=== PATIENT | female | born 1985 | race Caucasian/White ===

== ENCOUNTER 2017-10-05 17:37 | Emergency (ER) | payer BC ==
[~2017-10-05] VITALS: Ht 157.5 cm; Wt 73.3 kg
[~2017-10-05 17:37] MED LIST: FISHOIL PO
[2017-10-05 17:56] VITALS: Ht 157.5 cm; Wt 73.3 kg
[2017-10-05] MEDS ORDERED: RANITIDINE HCL 150 MG TAB PO STA (18:06)
[2017-10-05] MEDS ORDERED: SODIUM CHLORIDE 0.9% 1000ML 2,000 ML IV STA (18:06)
[2017-10-05] MEDS ORDERED: ONDANSETRON INJ 2 MG/ML 2 ML VIAL IV STA (18:06)
--- NOTE | 2017-10-05 18:21 | EMERGENCY ROOM VISIT NOTE ---
History Report prepared by Josue: Bry Srivastava Under the Supervision of: Dr. Kaveh Hook M.D. First contact with patient: 18:00 Chief Complaint: VOMITING Stated Complaint: VOMITING, 6 MONTHS Nursing Triage Summary: Patient ambulatory to triage with an upright and steady gait, states "I was exposed to chlorine gas on Monday. I don't know if this is from that. I have been vomiting a lot today. I was at work when it all started. I had to leave early." Patient denies any diarrhea. Patient admits to "stomach burning." History of Present Illness The patient is a 31 year old female who presents to the Emergency Room with complaints of persistent vomiting beginning three hours ago. The patient states that she is currently six months and has had no complications so far during her . She notes that this is her third , and reports that her first two pregnancies also did not have any complications. The patient states that her vomit was originally bile, but notes that it has since turned a red color. She denies having any symptoms this morning, but reports that she is also currently experiencing stomach burning and chills. She reports that she was exposed to chlorine gas two days ago and is not sure whether her current symptoms are related to her exposure. She denies any diarrhea, vaginal discharge /bleeding, urinary symptoms, fever, and known sick contacts. Source of History: patient Onset: three hours ago Position: abdomen Quality: other (vomiting) Timing: other (persistent) Associated Symptoms: + chills, No fevers, No diarrhea, No urinary symptoms Note: The patient also complains of stomach burning. She also denies any vaginal bleeding/discharge. Review of Systems See HPI for pertinent positives & negatives. A total of 10 systems reviewed and were otherwise negative. Past Medical & Surgical Medical Problems: (1) Family History No pertinent family history stated. Social History Smoking Status: Never Smoker Marital Status: Housing Status: lives with family Occupation Status: employed Current/Historical Medications Scheduled Multivit/Min/Iron/Fol Ac/Pren ( Vitamin), 1 TAB PO DAILY Ondasetron Odt (Zofran Odt), 4 MG SL Q6H Ranitidine Hcl (Zantac), 1 TAB PO BID Allergies Coded Allergies: No Known Allergies (Unverified , 10/05/17) Physical Exam Vital Signs Date Time Temp Pulse Resp B/P (MAP) Pulse Ox O2 Delivery O2 Flow Rate FiO2 10/05/17 20:53 36.5 78 18 103/56 100 10/05/17 20:31 78 18 103/56 100 Room Air 10/05/17 19:27 71 16 100/51 100 Room Air 10/05/17 17:56 36.5 84 20 100/62 100 Room Air Physical Exam GENERAL: Patient is in no acute distress. HEENT: No acute trauma, normocephalic atraumatic, mucous membranes moist, no nasal congestion, no scleral icterus. NECK: No stridor, no adenopathy, no meningismus, trachea is midline, scattered petechial hemorrhages to the anterior neck. LUNGS: Clear to auscultation bilaterally, no wheeze, no rhonchi, breath sounds equal. HEART: Without murmurs gallops or rubs, regular rate and rhythm. ABDOMEN: Soft, nontender, bowel sounds positive, no hernias, no peritonitis, gravid uterus to above the umbilicus. EXTREMITIES: No cyanosis or edema, full range of motion of all the joints without pain or difficulty, no signs for acute trauma. NEUROLOGIC: Oriented x 3, no acute motor or sensory deficits, no focal weakness. SKIN: No jaundice, no diaphoresis. Medical Decision & Procedures ER Provider Diagnostic Interpretation: Radiology results as stated below per my review and radiologist interpretation: CHEST ONE VIEW PORTABLE FINDINGS: Cardiomediastinal silhouette normal. No focal opacity. No large effusion or pneumothorax. Osseous structures normal. Upper abdomen normal. IMPRESSION: 1. No acute cardiopulmonary disease. Electronically signed by: Kyrie Gonzalez M.D. 10/05/2017 7:31 PM Laboratory Results 10/05/17 18:15 Red Blood Count 5.22, Mean Corpuscular Volume 84.7, Mean Corpuscular Hemoglobin 30.3, Mean Corpuscular Hemoglobin Concent 35.7, Mean Platelet Volume 10.2, Neutrophils (%) (Auto) 90.4, Lymphocytes (%) (Auto) 3.2, Monocytes (%) (Auto) 6.0, Eosinophils (%) (Auto) 0.1, Basophils (%) (Auto) 0.1, Neutrophils # (Auto) 13.75, Lymphocytes # (Auto) 0.49, Monocytes # (Auto) 0.92, Eosinophils # (Auto) 0.01, Basophils # (Auto) 0.01 10/05/17 18:15 Test 10/05/17 18:15 10/05/17 19:00 White Blood Count 15.21 K/uL (4.8-10.8) Red Blood Count 5.22 M/uL (4.2-5.4) Hemoglobin 15.8 g/dL (12.0-16.0) Hematocrit 44.2 % (37-47) Mean Corpuscular Volume 84.7 fL (80-100) Mean Corpuscular Hemoglobin 30.3 pg (25-34) Mean Corpuscular Hemoglobin Concent 35.7 g/dl (32-36) Platelet Count 254 K/uL (130-400) Mean Platelet Volume 10.2 fL (7.4-10.4) Neutrophils (%) (Auto) 90.4 % Lymphocytes (%) (Auto) 3.2 % Monocytes (%) (Auto) 6.0 % Eosinophils (%) (Auto) 0.1 % Basophils (%) (Auto) 0.1 % Neutrophils # (Auto) 13.75 K/uL (1.4-6.5) Lymphocytes # (Auto) 0.49 K/uL (1.2-3.4) Monocytes # (Auto) 0.92 K/uL (0.11-0.59) Eosinophils # (Auto) 0.01 K/uL (0-0.5) Basophils # (Auto) 0.01 K/uL (0-0.2) RDW Standard Deviation 39.8 fL (36.4-46.3) RDW Coefficient of Variation 12.9 % (11.5-14.5) Immature Granulocyte % (Auto) 0.2 % Immature Granulocyte # (Auto) 0.03 K/uL (0.00-0.02) Hyposegmented Neutrophils 1+ Anion Gap 7.0 mmol/L (3-11) Est Creatinine Clear Calc Drug Dose 91.5 ml/min Estimated GFR () 109.0 Estimated GFR (Non- 94.0 BUN/Creatinine Ratio 13.4 (10-20) Calcium Level 8.7 mg/dl (8.5-10.1) Total Bilirubin 0.4 mg/dl (0.2-1) Aspartate Amino Transf (AST/SGOT) 19 U/L (15-37) Alanine Aminotransferase (ALT/SGPT) 23 U/L (12-78) Alkaline Phosphatase 94 U/L (45-117) Total Protein 8.4 gm/dl (6.4-8.2) Albumin 3.5 gm/dl (3.4-5.0) Globulin 4.9 gm/dl (2.5-4.0) Albumin/Globulin Ratio 0.7 (0.9-2) Lipase 145 U/L (73-393) Urine Color YELLOW Urine Appearance CLOUDY (CLEAR) Urine pH 5.5 (4.5-7.5) Urine Specific [place] 1.015 (1.000-1.030) Urine Protein NEG (NEG) Urine Glucose (UA) NEG (NEG) Urine Ketones TRACE (NEG) Urine Occult Blood NEG (NEG) Urine Nitrite NEG (NEG) Urine Bilirubin NEG (NEG) Urine Urobilinogen NEG (NEG) Urine Leukocyte Esterase NEG (NEG) Urine WBC (Auto) 1-5 /hpf (0-5) Urine RBC (Auto) 0-4 /hpf (0-4) Urine Hyaline Casts (Auto) 5-10 /lpf (0-5) Urine Epithelial Cells (Auto) >30 /lpf (0-5) Urine Bacteria (Auto) 1+ (NEG) Laboratory results reviewed by me. Medications Administered Medications (Trade) Dose Ordered Sig/Ruben Route Start Time Stop Time Status Last Admin Dose Admin Sodium Chloride 2,000 ml @ 999 mls/hr Q2H1M STAT IV 10/05/17 18:06 10/05/17 20:06 DC 10/05/17 18:20 999 MLS/HR Ondansetron HCl (Zofran Inj) 4 mg NOW STAT IV 10/05/17 18:06 10/05/17 18:11 DC 10/05/17 18:20 4 MG Ranitidine HCl (zANTac TAB) 150 mg NOW STAT PO 10/05/17 18:06 10/05/17 18:11 DC 10/05/17 18:20 150 MG Ondansetron HCl (ZOFRAN ODT 4MG Home Pack) 1 homepack UD ONCE PO 10/05/17 20:45 10/05/17 20:46 DC 10/05/17 20:52 1 HOMEPACK ED Course 1804: The patient was evaluated in room B6. A complete history and physical exam was performed. 1805: Ranitidine HCl 150mg, Zofran Inj 4mg IV, Sodium Chloride 2000 ml @ 999 mls /hr IV 1811: I spoke to poison control who states that chlorine gas is just a throat and lung irritant and that the patients exposure should not cause any issues. 2025: I reevaluated and updated the patient. 2036: heart tones are 142. 2044: Ondansetron HCl 1 homepack PO 2051: Reevaluated the patient. Discussed results and discharge instructions: she verbalized understanding and agreement. The patient is ready for discharge. Medical Decision Differential diagnoses include: viral illness, foodborne illness, vomiting secondary to , dehydration, electrolyte abnormalities, GI bleed, and poisoning. There is a moderate leukocytosis at 15,000, this is consistent with her vomiting and . No concerning anemia. No significant electrolyte abnormality, kidney failure, hepatitis or pancreatitis. Chest film does not show free air or mediastinal widening, there is no pneumonia. heart tones were strong at over 140. On exam, the patient was not febrile or toxic. There was no peritonitis. Urinalysis result does not show evidence for infection. Patient received oral Zantac, IV Zofran and IV saline, she feels improved, no further vomiting. Patient is being discharged on Zantac for stomach burning/upset. Zofran for nausea, a bland and simple diet. This illness is likely viral or foodborne. She was reassured. Of note, I did contact the poison center about the chlorine gas inhalation, this would not be causing her issues today. Medication Reconcilliation Current Medication List: was personally reviewed by me Blood Pressure Screening Patient's blood pressure: Normal blood pressure Blood pressure disposition: Did not require urgent referral Impression Primary Impression: Nausea Additional Impressions: Vomiting Dehydration Scribe Attestation The scribe's documentation has been prepared under my direction and personally reviewed by me in its entirety. I confirm that the note above accurately reflects all work, treatment, procedures, and medical decision making performed by me. Departure Information Dispostion Home / Self-Care Prescriptions Ondasetron Odt (ZOFRAN ODT) 4 Mg Tab 4 MG SL Q6H for Nausea, #10 TAB Prov: Kaveh Hook M.D. 10/05/17 Ranitidine Hcl (ZANTAC) 150 Mg Tab 1 TAB PO BID for 14 Days, #28 TAB 3 Refills Prov: Kaveh Hook M.D. 10/05/17 Referrals Faye Braden DO (PCP) Forms HOME CARE DOCUMENTATION FORM, IMPORTANT VISIT INFORMATION Patient Instructions My [facility] Additional Instructions fluids rest tylenol for fever and pain zantac 2x per day for the stomach burning zofran 1 tab every 6 hours for nausea bland diet---crackers, soup, gatorade, toast, rice return if worsening Problem Qualifiers
[2017-10-05 18:28] LABS: HEMATOCRIT 44.2 % (37-47); HEMOGLOBIN 15.8 g/dL (12.0-16.0); MEAN CELL VOLUME 84.7 fL (80-100); MEAN CORPUSCULAR HEMOGLOBIN 30.3 pg (25-34); MEAN CORPUSCULAR HGB CONC 35.7 g/dl (32-36); MEAN PLATELET VOLUME 10.2 fL (7.4-10.4); PLATELET COUNT 254 K/uL (130-400); RED CELL DISTRIBUTION WIDTH CV 12.9 % (11.5-14.5); RED CELL DISTRIBUTION WIDTH SD 39.8 fL (36.4-46.3); WHITE BLOOD COUNT 15.21 K/uL (4.8-10.8)
[2017-10-05 18:47] LABS: ALBUMIN 3.5 gm/dl (3.4-5.0); CALCIUM 8.7 mg/dl (8.5-10.1); CREATININE 0.82 mg/dl (0.60-1.20); POTASSIUM 3.4 mmol/L (3.5-5.1)
[2017-10-05 18:49] LABS: TOTAL PROTEIN 8.4 gm/dl (6.4-8.2)
[2017-10-05 18:57] LABS: BASO % 0.1 %; BASO ABS # 0.01 K/uL (0-0.2); EOS % 0.1 %; EOS ABS # 0.01 K/uL (0-0.5); IG# 0.03 K/uL (0.00-0.02); LYMPH % 3.2 %; LYMPH ABS # 0.49 K/uL (1.2-3.4); MONO ABS # 0.92 K/uL (0.11-0.59); NEUT % 90.4 %; NEUT ABS # 13.75 K/uL (1.4-6.5)
--- NOTE | 2017-10-05 19:32 | DIAGNOSTIC IMAGING REPORT ---
CHEST ONE VIEW PORTABLE CLINICAL HISTORY: 31 years-old Female presenting with EVALUATE ALTERED MENTAL STATUS/WEAKNESS, vomiting. TECHNIQUE: Portable upright AP view of the chest was obtained. COMPARISON: None. FINDINGS: Cardiomediastinal silhouette normal. No focal opacity. No large effusion or pneumothorax. Osseous structures normal. Upper abdomen normal. IMPRESSION: 1. No acute cardiopulmonary disease. Electronically signed by: Kyrie Gonzalez M.D. 10/05/2017 7:31 PM Dictated Date/Time: 10/05/2017 7:30 PM
[2017-10-05] MEDS ORDERED: PRENTAB26 PO (20:26)
[2017-10-05] MEDS ORDERED: RANI150T3 PO (20:35)
[2017-10-05] MEDS ORDERED: ONDA4TAB10 SL (20:35)
[2017-10-05] MEDS ORDERED: ONDANSETRON HOME PACK 4MG OD TAB PO ONE (20:45)
[2017-10-05 20:53] VITALS: BP 103/56; PULSE 78; TEMP 36.5; O2SAT 100
== END 2017-10-05 20:52 | disposition home or self-care (01) ==
LOC: C.EDB 17:39
DX: O21.2 Late vomiting of pregnancy (principal); O99.282 Endocrine, nutritional and metabolic diseases complicating pregnancy, second trimester; E86.0 Dehydration; Z3A.24 24 weeks gestation of pregnancy; Z79.899 Other long term (current) drug therapy

== ENCOUNTER → 2018-01-12 | Outpatient (CLI) | payer BC ==
[~2018-01-12] MED LIST changes: -FISHOIL PO; +ONDA4TAB10 SL; +PRENTAB26 PO; +RANI150C4 PO; +RANI150T3 PO
[2018-01-12 10:33] LABS: BASO % 0.1 %; BASO ABS # 0.01 K/uL (0-0.2); EOS % 0.5 %; EOS ABS # 0.04 K/uL (0-0.5); HEMATOCRIT 36.4 % (37-47); HEMOGLOBIN 12.6 g/dL (12.0-16.0); IG# 0.06 K/uL (0.00-0.02); LYMPH % 19.4 %; LYMPH ABS # 1.61 K/uL (1.2-3.4); MEAN CELL VOLUME 85.6 fL (80-100); MEAN CORPUSCULAR HEMOGLOBIN 29.6 pg (25-34); MEAN CORPUSCULAR HGB CONC 34.6 g/dl (32-36); MEAN PLATELET VOLUME 10.7 fL (7.4-10.4); MONO % 8.9 %; MONO ABS # 0.74 K/uL (0.11-0.59); NEUT % 70.4 %; NEUT ABS # 5.86 K/uL (1.4-6.5); PLATELET COUNT 192 K/uL (130-400); RED CELL DISTRIBUTION WIDTH CV 12.9 % (11.5-14.5); WHITE BLOOD COUNT 8.32 K/uL (4.8-10.8)
== END | disposition home or self-care (01) ==
LOC: C.LAB 11:00
PROVIDERS: ATTEND Obstetrics & Gynecology
DX: Z01.812 Encounter for preprocedural laboratory examination (principal)

== ENCOUNTER 2018-01-18 05:51 | Inpatient (IN) | payer BC ==
[2018-01-12 09:04] VITALS: BMI 33.0
[~2018-01-18] VITALS: Ht 157.5 cm; Wt 84.1 kg
[2018-01-18] VITALS (13 sets, daily range): BP systolic 97–105; BP diastolic 53–61; PULSE 53–64; TEMP 36.2–36.9; O2SAT 95–100; Ht 157.5 cm; Wt 84.1 kg
[~2018-01-18 05:51] MED LIST changes: -ONDA4TAB10 SL; -RANI150T3 PO
[2018-01-18] MEDS ORDERED: CEFAZOLIN IV 2,000 MG in SYRINGE 0 ML IV SCH (06:00)
[2018-01-18] MEDS ORDERED: CITRIC ACID/SODIUM CITRATE 15 ML UDC PO SCH (06:00)
[2018-01-18] MEDS: LACTATED RINGER'S 1000ML 1,000 ML IV SCH ×2 (06:19→06:24)
[2018-01-18 06:39] LABS: BASO % 0.1 %; BASO ABS # 0.01 K/uL (0-0.2); EOS % 0.6 %; EOS ABS # 0.06 K/uL (0-0.5); HEMATOCRIT 35.4 % (37-47); HEMOGLOBIN 12.1 g/dL (12.0-16.0); IG# 0.05 K/uL (0.00-0.02); LYMPH ABS # 2.18 K/uL (1.2-3.4); MEAN CELL VOLUME 85.3 fL (80-100); MEAN CORPUSCULAR HEMOGLOBIN 29.2 pg (25-34); MEAN PLATELET VOLUME 10.5 fL (7.4-10.4); MONO % 7.5 %; MONO ABS # 0.78 K/uL (0.11-0.59); NEUT % 70.3 %; NEUT ABS # 7.28 K/uL (1.4-6.5); PLATELET COUNT 189 K/uL (130-400); RED CELL DISTRIBUTION WIDTH CV 12.9 % (11.5-14.5); RED CELL DISTRIBUTION WIDTH SD 39.5 fL (36.4-46.3); WHITE BLOOD COUNT 10.36 K/uL (4.8-10.8)
[2018-01-18 06:49] LABS: MEAN CORPUSCULAR HGB CONC 34.2 g/dl (32-36)
--- NOTE | 2018-01-18 07:20 | History & Physical Bridge Note ---
H&P Re-Evaluation Bridge Note: I have examined the patient, reviewed the History & Physical and in the interval since the performance of the History & Physical I have noted the following changes of clinical significance: No changes noted
[2018-01-18] MEDS ORDERED: FENTANYL CITRATE INJ 50 MCG/1 ML 2 ML VIAL ONE (07:56)
[2018-01-18] MEDS ORDERED: MoRPHine SULFATE PF 1 MG/ML 10 ML AMP/VIAL ONE (07:57)
[2018-01-18] MEDS ORDERED: PHENYLEPHRINE 100MCG/ML 5ML SYR ONE (09:23)
[2018-01-18] MEDS ORDERED: KETOROLAC TROMETHAMINE 30 MG/ML VIAL ONE (09:23)
[2018-01-18] MEDS ORDERED: OXYTOCIN INJ 10 UNITS/ML VIAL ONE (09:23)
[2018-01-18] MEDS ORDERED: ONDANSETRON INJ 2 MG/ML 2 ML VIAL ONE (09:23)
[2018-01-18] MEDS ORDERED: OXYTOCIN INJ 20 UNITS in D5W AND LACTATED RINGERS 1,000 ML IV SCH (09:37)
--- NOTE | 2018-01-18 09:44 | [facility] Post Operative Brief Note ---
Immediate Operative Summary Operative Date Jan 18, 2018. Pre-Operative Diagnosis Term - Previous Caesarean Section x 2- Desire for repeat Caesarean Section Post-Operative Diagnosis Same with delivery of living female child at 0857 Procedure(s) Performed Repeat Low Transverse Caesarean Section Surgeon Dr. aTm Ray Entry Level Mechanical Engineer Surgeon(s) Dr. Chester Pinto Estimated Blood Loss 600 Findings Consistent with Post-Op Diagnosis Specimens a. placenta- hold b. cord blood specimen Drains mann 300 ml Anesthesia Type Spinal Complication(s) none Disposition Disposition: L&D Overlapping Procedure I was present for: entire case
[2018-01-18] MEDS ORDERED: PROMETHAZINE HCL INJ 12.5 MG in SODIUM CHLORIDE 0.9% 50ML 50 ML IV PRN (09:45)
[2018-01-18] MEDS ORDERED: ONDANSETRON INJ 2 MG/ML 2 ML VIAL IV PRN (09:45)
[2018-01-18] MEDS ORDERED: NALOXONE HCL 0.4 MG/1 ML VIAL/CARP IV PRN (09:45)
[2018-01-18] MEDS ORDERED: MoRPHine SULFATE PF 1 MG/ML 10 ML AMP/VIAL EPI PRN (09:45)
[2018-01-18] MEDS ORDERED: MoRPHine SULFATE 2 MG/ML CARP IV PRN (09:45)
[2018-01-18] MEDS ORDERED: LANOLIN OINT EXT PRN (09:45)
[2018-01-18] MEDS ORDERED: MEASLES, MUMPS & RUBELLA VIRUS VIAL SQ. ONE (09:45)
[2018-01-18] MEDS ORDERED: NALOXONE HCL INJ 0.08 MG in SYRINGE 1.8 ML IV PRN (09:45)
[2018-01-18] MEDS ORDERED: EpHEDrine SULFATE INJ 50 MG/ML AMP IV PRN (09:45)
[2018-01-18] MEDS ORDERED: HYDROCORTISONE ACETATE 25 MG SUPP PR PRN (09:45)
[2018-01-18] MEDS ORDERED: SENNA 8.6 MG TAB PO PRN (09:45)
[2018-01-18] MEDS ORDERED: LACTATED RINGER'S 1000ML 500 ML IV PRN (09:45)
[2018-01-18] MEDS ORDERED: DiphenhydrAMINE HCL 50 MG/ML VIAL IV PRN ×2 (09:45)
[2018-01-18] MEDS ORDERED: MAGNESIUM HYDROXIDE SUSP 30 ML UDC PO PRN (09:45)
[2018-01-18] MEDS ORDERED: NALOXONE HCL INJ 1 MG in SODIUM CHLORIDE 0.9% 1000ML 1,000 ML IV PRN (09:45)
[2018-01-18] MEDS ORDERED: NALBUPHINE HCL INJ 10 MG/ML 1ML AMP IV PRN (09:45)
[2018-01-18] MEDS ORDERED: BENZOCAINE 20% AER SPR 82.5 GM CAN EXT PRN (09:45)
[2018-01-18] MEDS ORDERED: MEPERIDINE HCL 25 MG/ML CARP IV PRN (09:45)
[2018-01-18] MEDS ORDERED: SUPERCREAM 0.870 % 15GM JAR EXT PRN (09:45)
[2018-01-18] MEDS ORDERED: SODIUM CHLORIDE 0.9% 1000ML 1,000 ML IV PRN (09:45)
[2018-01-18] MEDS ORDERED: NO NARCOTICS OR SEDATIVES SCH (09:45)
[2018-01-18] MEDS ORDERED: METOCLOPRAMIDE HCL INJ 10 MG in SODIUM CHLORIDE 0.9% 50ML 50 ML IV PRN (09:45)
[2018-01-18] MEDS ORDERED: DIPHTHERIA/TETANUS/PERTUSSIS 0.5 ML SYR/VIAL IM. ONE (09:45)
[2018-01-18] MEDS ORDERED: OXYTOCIN INJ 20 UNITS in LACTATED RINGER'S 1000ML 1,000 ML IV SCH (10:30)
[2018-01-18] MEDS ORDERED: D5W AND LACTATED RINGERS 1,000 ML IV SCH (10:30)
--- NOTE | 2018-01-18 10:33 | OPERATIVE REPORT ---
DATE OF OPERATION: 01/18/2018 PREOPERATIVE DIAGNOSIS: The patient is a 32-year-old G3, P2-0-0-2 at 39 weeks and 2 days of gestation with a history of prior two C-sections and desire for repeat . POSTOPERATIVE DIAGNOSIS: The patient is a 32-year-old G3, P2-0-0-2 at 39 weeks and 2 days of gestation with a history of prior two C-sections and desire for repeat . PROCEDURE: Repeat low transverse with Pfannenstiel skin incision. SURGEON: Tam Ray MD PRIVATE CHEF: Dr. Pinto. ESTIMATED BLOOD LOSS: 600 mL. DRAINS: Ortega drained 300 mL of clear urine. ANESTHESIA: Spinal, Dr. Jhaveri. COMPLICATIONS: None. FINDINGS: Baby was a viable female infant, in cephalic presentation, Apgars 8/9 , delivered at 08:57 a.m., weight was 3410 grams. Maternal findings: Thinned lower uterine segment, otherwise normal uterus, fallopian tubes, and ovaries. DESCRIPTION OF PROCEDURE: The patient was taken to the operating room where spinal anesthesia was given without difficulty. She was placed in dorsal supine position with a leftward tilt. She was prepared and draped in usual sterile fashion. A Pfannenstiel skin incision was made and carried through to the underlying layer of fascia with the Bovie. The fascia was incised in the midline and incision extended laterally with the help of Shankar scissors. There noted to be some scarring on the rectus faschia attributed to prior surgeries. Those were gently opened with help of Shankar scissors and some with the tip of Bovie. Lower aspect of the fascial incision was then grasped and rectus muscles were from the fascia with the Shankar scissors and upper aspect of the fascial incision was then grasped and the rectus fascia was from the muscle with Shankar as well as scalpel. There was a thick hard scarring between the fascia and the muscle. Those were reduced gently with the tip of scissors and the scalpel. Rectus muscles were elevated with Allis clamps and the midline was entered with the scalpel and then digitally the peritoneum was entered with good visualization of the bladder. The rectus muscles and the peritoneum were incised with Shankar and Metzenbaum scissors and then the opening was stretched with surgeon's hands, and a bladder blade was inserted. Upon inspection of the lower uterine segment, it was noted to be thinned, we were able to see the amniotic fluid, the baby's hair floating under the thinned lower uterine segment. Vesicouterine peritoneum was identified, grasped with pickups, entered sharply with Metzambaum scissors and bladder flap was created digitally. Then the lower uterine segment was incised with a scalpel. The incision was extended laterally with the help of fingers. Clear amniotic fluid was obtained. The baby's head was brought to the incision, delivered without difficulty. Shoulders were delivered with minimal traction. Mouth and nose were suctioned. Cord was clamped x2 and cut and baby was handed off to the waiting plastic mould maker, Dr. Singh. Cord blood was obtained. Placenta was delivered manually as intact and complete. Uterus was exteriorized, cleared of all clots and debris. Uterine incision was repaired with 0 Vicryl in a running locked fashion. An imbricating second layer was placed with 0 Vicryl in a running fashion. There was bleeding in the middle of the incision. It was repaired with 0 Vicryl on CT1 needle. Excellent hemostasis was achieved. Fallopian tubes, ovaries and posterior cul- de-sac were visualized to be normal and the cul-de-sac was irrigated with normal saline and suctioned. Uterus was returned to the abdomen. The pelvis was irrigated with warm normal saline and suctioned. Uterine incision was noted to be hemostatic again. Then the parietal peritoneum together with the rectus muscles were reapproximated with 3-0 Vicryl in a running fashion. The rectus muscles were checked to be hemostatic. Then the rectus fascia was reapproximated with 0 Vicryl in a running fashion starting from both corners and meeting in the midline. The subcuticular fat tissue was reapproximated with 3-0 Vicryl in a running fashion. Skin was closed with 4-0 Monocryl in a subcuticular fashion. The patient tolerated the procedure well. Sponge, lap, and needle count was correct x3. No complications happened. The patient received 2 grams of cefazolin before surgery. I was and Dr. Pinto was present during whole procedure. The was taken to labor and delivery in stable condition. I attest to the content of the Intraoperative Record and any orders documented therein. Any exceptions are noted below. TIA
[2018-01-18] MEDS: SIMETHICONE 80 MG CHEW PO SCH ×2 (13:01→19:43)
--- NOTE | 2018-01-18 14:34 | Anesthesiology Progress Note ---
Anesthesia Post Op Note Date & Time Jan 18, 2018 at 14:34 Vital Signs Pain Intensity: 6.0 Vital Signs Past 12 Hours Date Time Temp Pulse Resp B/P (MAP) Pulse Ox O2 Delivery O2 Flow Rate FiO2 01/18/18 13:15 16 100 01/18/18 13:15 36.5 60 16 97/53 (68) 100 Room Air 01/18/18 12:00 100 Room Air 01/18/18 12:00 36.2 58 18 97/58 (71) 100 Room Air 01/18/18 12:00 18 100 01/18/18 12:00 100 Room Air Notes Mental Status: alert / awake / arousable, participated in evaluation Pt Amnestic to Procedure: Yes Nausea / Vomiting: adequately controlled Pain: adequately controlled Airway Patency, RR, SpO2: stable & adequate BP & HR: stable & adequate Hydration State: stable & adequate Neuraxial Anesthesia: was administered, sensory block is resolving Anesthetic Complications: no major complications apparent
[2018-01-18] MEDS: KETOROLAC TROMETHAMINE 30 MG/ML VIAL IV. PRN (15:42)
[2018-01-18] MEDS: DOCUSATE SODIUM 100 MG CAP PO SCH (19:43)
[2018-01-19] VITALS (11 sets, daily range): BP systolic 97–101; BP diastolic 54–63; PULSE 63–77; TEMP 36.7–36.9; O2SAT 95–98
[2018-01-19] MEDS: KETOROLAC TROMETHAMINE 30 MG/ML VIAL IV. PRN (00:17)
[2018-01-19 06:46] LABS: BASO % 0.1 %; BASO ABS # 0.01 K/uL (0-0.2); EOS % 0.7 %; EOS ABS # 0.08 K/uL (0-0.5); HEMATOCRIT 32.9 % (37-47); HEMOGLOBIN 11.2 g/dL (12.0-16.0); IG# 0.05 K/uL (0.00-0.02); LYMPH % 16.1 %; LYMPH ABS # 1.72 K/uL (1.2-3.4); MEAN CELL VOLUME 85.2 fL (80-100); MEAN PLATELET VOLUME 10.5 fL (7.4-10.4); MONO % 7.4 %; MONO ABS # 0.79 K/uL (0.11-0.59); NEUT % 75.2 %; NEUT ABS # 8.05 K/uL (1.4-6.5); PLATELET COUNT 175 K/uL (130-400); RED CELL DISTRIBUTION WIDTH CV 12.9 % (11.5-14.5); RED CELL DISTRIBUTION WIDTH SD 39.5 fL (36.4-46.3)
[2018-01-19] MEDS ORDERED: DC INTRASPINAL MORPHINE ONE (07:00)
[2018-01-19] MEDS ORDERED: MEPERIDINE HCL 50 MG/ML CARP IV PRN ×2 (07:00)
[2018-01-19] MEDS ORDERED: PROMETHAZINE HCL INJ 25 MG in SODIUM CHLORIDE 0.9% 50ML 50 ML IV PRN (07:00)
[2018-01-19] MEDS ORDERED: DiphenhydrAMINE HCL 50 MG/ML VIAL IV PRN (07:00)
[2018-01-19] MEDS ORDERED: OXYCODONE/ACETAMINOPHEN 5-325 TAB PO PRN (07:00)
[2018-01-19] MEDS ORDERED: KETOROLAC TROMETHAMINE 30 MG/ML VIAL IV. PRN (07:00)
[2018-01-19] MEDS ORDERED: ONDANSETRON INJ 2 MG/ML 2 ML VIAL IV PRN (07:00)
[2018-01-19] MEDS ORDERED: PRENATAL VITAMIN TAB PO SCH ×2 (08:00→22:00)
[2018-01-19] MEDS: FERROUS SULFATE 325 MG TAB PO SCH (08:06)
[2018-01-19] MEDS: IBUPROFEN 600 MG TAB PO PRN ×4 (08:06→21:03)
[2018-01-19] MEDS: SIMETHICONE 80 MG CHEW PO SCH ×4 (08:07→19:41)
[2018-01-19] MEDS: DOCUSATE SODIUM 100 MG CAP PO SCH ×2 (08:07→19:41)
--- NOTE | 2018-01-19 11:33 | Progress Note ---
Subjective Jan 19, 2018. Subjective conversation w/ patient Voiding: no voiding problems Passing Gas: Yes Diet Tolerance: Regular Diet Lochia: Moderate Feeding Type: Breast Feeding Review of Systems Constitutional: No fever, No chills, No sweats, No weight loss, No weakness, No fatigue, No problem reported Respiratory: No cough, No sputum, No wheezing, No shortness of breath, No dyspnea on exertion, No dyspnea at rest, No hemoptysis, No problem reported Cardiac: No chest pain, No orthopnea, No PND, No edema, No claudication, No palpitations, No problem reported Breast: No see HPI, No breast lump, No change in shape, No nipple discharge, No breast pain, No problem reported Abdomen: No pain, No nausea, No vomiting, No diarrhea, No constipation, No GI bleeding, No problem reported Female : No see HPI, No dysuria, No urinary frequency, No hematuria, No incontinence, No abnormal vaginal bleeding, No vaginal discharge, No problem reported Objective Vital Signs Date Time Temp Pulse Resp B/P (MAP) Pulse Ox O2 Delivery O2 Flow Rate FiO2 01/19/18 08:55 36.7 69 18 100/56 (71) 98 Room Air 01/19/18 08:55 98 Room Air 01/19/18 06:20 16 98 01/19/18 05:20 16 96 01/19/18 04:40 36.7 64 16 97/54 (68) 96 Room Air 01/19/18 04:20 16 96 01/19/18 03:20 16 95 01/19/18 02:20 16 95 01/19/18 01:20 16 95 01/19/18 00:20 16 95 01/18/18 23:15 95 Room Air 01/18/18 23:15 36.9 64 18 98/57 (71) 95 Room Air 01/18/18 23:15 18 95 01/18/18 22:20 16 95 01/18/18 21:20 16 95 01/18/18 20:20 16 97 01/18/18 19:45 36.6 64 18 101/54 (70) 100 Room Air 01/18/18 19:45 100 Room Air 01/18/18 19:10 18 100 01/18/18 18:02 20 99 01/18/18 17:05 20 98 01/18/18 16:05 20 98 01/18/18 16:05 36.7 53 20 105/61 (76) Room Air 01/18/18 16:05 98 Room Air 01/18/18 15:05 20 98 01/18/18 14:15 18 99 01/18/18 13:15 16 100 01/18/18 13:15 36.5 60 16 97/53 (68) 100 Room Air 01/18/18 12:00 100 Room Air 01/18/18 12:00 36.2 58 18 97/58 (71) 100 Room Air 01/18/18 12:00 18 100 01/18/18 12:00 100 Room Air Physical Exam General Appearance: WELL-APPEARING Fundus: Firm Incision Description: Clean, Dry & Intact Laboratory Results Last 24 Hours Test 01/19/18 06:08 White Blood Count 10.70 K/uL Red Blood Count 3.86 M/uL Hemoglobin 11.2 g/dL Hematocrit 32.9 % Mean Corpuscular Volume 85.2 fL Mean Corpuscular Hemoglobin 29.0 pg Mean Corpuscular Hemoglobin Concent 34.0 g/dl Platelet Count 175 K/uL Mean Platelet Volume 10.5 fL Neutrophils (%) (Auto) 75.2 % Lymphocytes (%) (Auto) 16.1 % Monocytes (%) (Auto) 7.4 % Eosinophils (%) (Auto) 0.7 % Basophils (%) (Auto) 0.1 % Neutrophils # (Auto) 8.05 K/uL Lymphocytes # (Auto) 1.72 K/uL Monocytes # (Auto) 0.79 K/uL Eosinophils # (Auto) 0.08 K/uL Basophils # (Auto) 0.01 K/uL RDW Standard Deviation 39.5 fL RDW Coefficient of Variation 12.9 % Immature Granulocyte % (Auto) 0.5 % Immature Granulocyte # (Auto) 0.05 K/uL Assessment and Plan Problem List Medical Problems: (1) Dehydration Status: Acute (2) Nausea & vomiting Status: Acute Day#: 1 Continue Routine Care: Continue routine care
[2018-01-19] MEDS: OXYCODONE/ACETAMINOPHEN 5-325 TAB PO PRN ×3 (12:24→21:04)
[2018-01-19] MEDS ORDERED: NURSING VERBAL MED ORDER ONE (12:45)
[2018-01-19] MEDS ORDERED: BISACODYL 5 MG TABEC PO ONE (22:00)
[2018-01-20] MEDS: IBUPROFEN 600 MG TAB PO PRN ×3 (01:07→09:00)
[2018-01-20] MEDS: OXYCODONE/ACETAMINOPHEN 5-325 TAB PO PRN ×3 (01:08→09:01)
[2018-01-20 07:08] LABS: HEMATOCRIT 32.6 % (37-47); HEMOGLOBIN 11.1 g/dL (12.0-16.0)
--- NOTE | 2018-01-20 07:55 | Progress Note ---
Subjective Jan 20, 2018. Subjective conversation w/ patient Ambulation: ambulating normally Voiding: no voiding problems Passing Gas: Yes Diet Tolerance: Regular Diet Lochia: Small Feeding Type: Breast Feeding Review of Systems Constitutional: + fever Objective Vital Signs Date Time Temp Pulse Resp B/P (MAP) Pulse Ox O2 Delivery O2 Flow Rate FiO2 01/19/18 23:40 97 Room Air 01/19/18 23:40 36.7 77 18 100/63 (75) 97 Room Air 01/19/18 16:20 Room Air 01/19/18 16:20 36.9 63 20 101/59 (73) Room Air 01/19/18 08:55 36.7 69 18 100/56 (71) 98 Room Air 01/19/18 08:55 98 Room Air Physical Exam General Appearance: WELL-APPEARING Abdomen: non tender Fundus: Firm, Non-Tender Extremities: no pedal edema, no calf tenderness Laboratory Results Last 24 Hours Test 01/20/18 06:56 Hemoglobin 11.1 g/dL Hematocrit 32.6 % Assessment and Plan Problem List Medical Problems: (1) Dehydration Status: Acute (2) Nausea & vomiting Status: Acute Post-Op Day#: 2
--- NOTE | 2018-01-20 07:58 | Discharge Instructions ---
Discharge Instructions Date of Service Jan 20, 2018. Admission Reason for Admission: Previous Section Discharge Discharge Diagnosis / Problem: previouscesaren section Discharge Goals Goal(s): Routine recovery after Activity Recommendations Activity Limitations: as noted below ACTIVITY RECOMMENDATIONS: * Gradual return to full activity over the next 2-3 weeks. * No lifting - nothing heavier than baby over the next 2-3 weeks. * Do not engage in vigorous exercise, sexual activity or sports until cleared by your physician. * Do not drive or operate any motorized equipment until cleared by your physician. * You may shower/bathe daily. BREAST CARE: If you are not breast feeding: * Wear a supportive bra 24 hours a day for one to two weeks. * Avoid stimulating your breasts and nipples as much as possible during the first few weeks after delivery. * When taking a shower, have the warm water hit your back, not breasts. * When your breasts feel full, apply ice packs. Usually three to four times a day helps ease the discomfort. * Take a mild pain medication (Tylenol/Motrin) when you are uncomfortable. If breast feeding: * Use breast milk to lubricate nipples. Lansinoh cream may be used for sore nipples. You do not need to remove cream prior to breast feeding. If using a different brand of cream, check the label for directions regarding removal of cream prior to nursing. * Wear a supportive bra. * If having problems with breasts or breast feeding, call a personal consultant or your health care provider. OVER THE COUNTER MEDICATION: * For discomfort or pain, you may use Acetaminophen (Tylenol), Ibuprofen (Advil ), or Naproxen (Aleve) following the package directions. * For constipation you may use Colace following the package directions. SPECIAL CARE INSTRUCTIONS: When you are discharged from the hospital, it is important for you to follow the instructions listed below: * During the first week at home, you should be able to care for yourself and your baby. In addition, the usual light household activities are encouraged. * Limit your activities to the way you feel. Do not try to clean the house or move furniture. Be sensible. * If you actively engage in sports and have done so up until the time of your delivery, you may resume these activities as soon as you feel able. This may take up to one month or even longer. Use good judgment. * Continue to take your vitamins for at least six weeks after the of your baby. * Your diet need not be limited unless you were on a special diet before your delivery. Breast-feeding mothers need around 2500 calories per day and at least 64-80 ounces of fluid per day (8 to 10 glasses). * You should eat foods from the four major food groups. Crash diets or fad diets are to be avoided. Eating lean meats, fresh fruits and vegetables, low-fat dairy products, high fiber foods and a regular exercise program, will help you get back to your pre- weight without putting your health at risk. * Constipation is sometimes a problem after delivery. Take a mild laxative as needed. If breast feeding, Milk of Magnesia is acceptable to use. You may use a suppository or Fleets enema if no episiotomy. * A daily shower or tub bath is suggested. Be sure to thoroughly and gently dry the perineum. * A bloody vaginal discharge will usually continue until around four weeks post . A small amount of bleeding may continue for as long as six weeks. Vaginal discharge changes from the bright red bleeding after delivery to pink then brownish and finally yellowish-pink before becoming white and disappearing. * Bleeding may increase with activity. Your first period may come in 4-8 weeks. If you are breast feeding, your period may be delayed even longer. * [place] (sex) can begin whenever both you and your partner feel comfortable and do not have any form of genital infection. It is recommended that you wait at least six weeks for internal and external healing to occur. If you have questions, please talk to your health care practitioner. A condom should be used to prevent infection and . * Foreplay, gentle intercourse and lubrication is very important the first several times to prevent pain. A water-based lubricant such as K-Y jelly or Astroglide may be used. * Tampons and/or Douching should be avoided until after six weeks check-up. * If you have RH negative blood and your baby is RH positive, you will receive RHOGAM by injection prior to discharge. The nurse will give you a card to keep with you that has the date and place that you received RHOGAM after delivery. * During your care, you had a Rubella screen done to check for the presence of rubella antibodies in your blood. If your test was negative, you will receive a Rubella vaccine prior to discharge. This vaccine may cause a fever, soreness at the injection site and flu-like symptoms. If these symptoms persist, notify your health care practitioner. is not advised for three months after a Rubella vaccine. * Verbalizes understanding of car seat law as reviewed with patient nursing. * Car Seat hand-out given and reviewed with patient by nursing. * Shaken baby information reviewed with patient by nursing. Call you doctor if: * Heavy bleeding (saturating several pads an hour) or passing clots the size of your fist. * A fever >101 degrees F (38.3 degrees C) on two occasions four hours apart and /or chills. * Unusual pain in the pelvic or vaginal areas. Pain should improve each day . * Call the doctor for any increased redness, drainage or swelling around the incision and any pain unrelieved by prescribed pain medication. * Any signs or symptoms of phlebitis (possible blood clots forming in the veins ): leg pain, warm, red or swollen area on leg. * "Baby Blues" lasting longer than two weeks. If you have any questions or concerns, call your health care practitioner at . FOLLOW-UP VISIT: * Incision check (staple removal) in 1 week. Please call doctor's office at to set up appointment. * Please call the office at to schedule a 6 week examination. It is important you keep this appointment. * It is important for you to make arrangements for either yearly or twice yearly check-ups thereafter. . Current Hospital Diet ACTIVITY RECOMMENDATIONS: * Gradual return to full activity over the next 2-3 weeks. * No lifting - nothing heavier than baby over the next 2-3 weeks. * Do not engage in vigorous exercise, sexual activity or sports until cleared by your physician. * Do not drive or operate any motorized equipment until cleared by your physician. * You may shower/bathe daily. BREAST CARE: If you are not breast feeding: * Wear a supportive bra 24 hours a day for one to two weeks. * Avoid stimulating your breasts and nipples as much as possible during the first few weeks after delivery. * When taking a shower, have the warm water hit your back, not breasts. * When your breasts feel full, apply ice packs. Usually three to four times a day helps ease the discomfort. * Take a mild pain medication (Tylenol/Motrin) when you are uncomfortable. If breast feeding: * Use breast milk to lubricate nipples. Lansinoh cream may be used for sore nipples. You do not need to remove cream prior to breast feeding. If using a different brand of cream, check the label for directions regarding removal of cream prior to nursing. * Wear a supportive bra. * If having problems with breasts or breast feeding, call a personal consultant or your health care provider. OVER THE COUNTER MEDICATION: * For discomfort or pain, you may use Acetaminophen (Tylenol), Ibuprofen (Advil ), or Naproxen (Aleve) following the package directions. * For constipation you may use Colace following the package directions. SPECIAL CARE INSTRUCTIONS: When you are discharged from the hospital, it is important for you to follow the instructions listed below: * During the first week at home, you should be able to care for yourself and your baby. In addition, the usual light household activities are encouraged. * Limit your activities to the way you feel. Do not try to clean the house or move furniture. Be sensible. * If you actively engage in sports and have done so up until the time of your delivery, you may resume these activities as soon as you feel able. This may take up to one month or even longer. Use good judgment. * Continue to take your vitamins for at least six weeks after the of your baby. * Your diet need not be limited unless you were on a special diet before your delivery. Breast-feeding mothers need around 2500 calories per day and at least 64-80 ounces of fluid per day (8 to 10 glasses). * You should eat foods from the four major food groups. Crash diets or fad diets are to be avoided. Eating lean meats, fresh fruits and vegetables, low-fat dairy products, high fiber foods and a regular exercise program, will help you get back to your pre- weight without putting your health at risk. * Constipation is sometimes a problem after delivery. Take a mild laxative as needed. If breast feeding, Milk of Magnesia is acceptable to use. You may use a suppository or Fleets enema if no episiotomy. * A daily shower or tub bath is suggested. Be sure to thoroughly and gently dry the perineum. * A bloody vaginal discharge will usually continue until around four weeks post . A small amount of bleeding may continue for as long as six weeks. Vaginal discharge changes from the bright red bleeding after delivery to pink then brownish and finally yellowish-pink before becoming white and disappearing. * Bleeding may increase with activity. Your first period may come in 4-8 weeks. If you are breast feeding, your period may be delayed even longer. * [place] (sex) can begin whenever both you and your partner feel comfortable and do not have any form of genital infection. It is recommended that you wait at least six weeks for internal and external healing to occur. If you have questions, please talk to your health care practitioner. A condom should be used to prevent infection and . * Foreplay, gentle intercourse and lubrication is very important the first several times to prevent pain. A water-based lubricant such as K-Y jelly or Astroglide may be used. * Tampons and/or Douching should be avoided until after six weeks check-up. * If you have RH negative blood and your baby is RH positive, you will receive RHOGAM by injection prior to discharge. The nurse will give you a card to keep with you that has the date and place that you received RHOGAM after delivery. * During your care, you had a Rubella screen done to check for the presence of rubella antibodies in your blood. If your test was negative, you will receive a Rubella vaccine prior to discharge. This vaccine may cause a fever, soreness at the injection site and flu-like symptoms. If these symptoms persist, notify your health care practitioner. is not advised for three months after a Rubella vaccine. * Verbalizes understanding of car seat law as reviewed with patient nursing. * Car Seat hand-out given and reviewed with patient by nursing. * Shaken baby information reviewed with patient by nursing. Call you doctor if: * Heavy bleeding (saturating several pads an hour) or passing clots the size of your fist. * A fever >101 degrees F (38.3 degrees C) on two occasions four hours apart and /or chills. * Unusual pain in the pelvic or vaginal areas. Pain should improve each day . * Call the doctor for any increased redness, drainage or swelling around the incision and any pain unrelieved by prescribed pain medication. * Any signs or symptoms of phlebitis (possible blood clots forming in the veins ): leg pain, warm, red or swollen area on leg. * "Baby Blues" lasting longer than two weeks. If you have any questions or concerns, call your health care practitioner at . FOLLOW-UP VISIT: * Incision check (staple removal) in 1 week. Please call doctor's office at to set up appointment. * Please call the office at to schedule a 6 week examination. It is important you keep this appointment. * It is important for you to make arrangements for either yearly or twice yearly check-ups thereafter. Patient's current hospital diet: Regular OB Diet Discharge Diet Recommended Diet: Regular Diet Procedures Procedures Performed: Repeat Low Transverse Caesarean Section Pending Studies Studies pending at discharge: no Medical Emergencies . Who to Call and When: Medical Emergencies: If at any time you feel your situation is an emergency, please call 911 immediately. . Non-Emergent Contact Non-Emergency issues call your: Director Of Cardiac Rehabilitation Call Non-Emergent contact if: temperature is above 100.5 . . "Provider Documentation" section prepared by Ankur Solano. .
--- NOTE | 2018-01-20 08:26 | DISCHARGE SUMMARY ---
Mrs. Baxter was admitted for repeat section at term. On the day of admission, she was taken to the OR where she underwent repeat low segment section, was done without incident. Bleeding was minimal. Postoperatively, the patient did well. Her preoperative hemoglobin was 12.1, postoperatively hemoglobin fell to 11.1. She remained afebrile. Bowel sounds returned promptly. On the second postoperative day, the patient requested early discharge, and she was discharged with prescriptions for Percocet and Motrin for pain control. Told to call the office for a followup visit and to call if she had a temperature over 100 or any heavy bleeding.
[2018-01-20] MEDS: FERROUS SULFATE 325 MG TAB PO SCH (08:39)
[2018-01-20 08:40] VITALS: BP 117/63; PULSE 86; TEMP 36.6; O2SAT 96
[2018-01-20] MEDS: SIMETHICONE 80 MG CHEW PO SCH (08:40)
[2018-01-20] MEDS: DOCUSATE SODIUM 100 MG CAP PO SCH (08:40)
[2018-01-20] MEDS ORDERED: BISACODYL 10 MG SUPP PR PRN (09:45)
[2018-01-20 11:25] VITALS: BP_DIAS 63; PULSE 86; TEMP 36.6
== END 2018-01-20 11:25 | disposition home or self-care (01) | DRG 766 ==
LOC: C.LD 05:51 → EDSTATUS 09:58 → C.OBG 13:00
PROVIDERS: ADMIT Obstetrics & Gynecology; ATTEND Obstetrics & Gynecology
PROC: 10D00Z1 Extraction of Products of Conception, Low, Open Approach (ICD-10-PCS; principal; 2018-01-18 08:15)
DX: O34.211 Maternal care for low transverse scar from previous cesarean delivery (principal); Z3A.39 39 weeks gestation of pregnancy; Z37.0 Single live birth